=== PATIENT | male | born 1975 | race Hispanic/Latino ===

== ENCOUNTER 2018-05-06 17:25 | Observation (INO) | payer BC ==
[~2018-05-06] VITALS: Ht 185.4 cm; Wt 98.2 kg
[2018-05-06 17:45] VITALS: BP 125/80
[2018-05-06 19:00] VITALS: BP 130/83
[2018-05-06] MEDS ORDERED: ACETAMINOPHEN 325 MG TAB ONE (19:46)
[2018-05-06] MEDS ORDERED: POTASSIUM CHLORIDE 20MEQ/100ML 100 ML IV PRN (20:00)
[2018-05-06] MEDS ORDERED: ZOLPIDEM TARTRATE 5 MG TAB PO PRN (20:00)
[2018-05-06] MEDS ORDERED: DIAZEPAM 5 MG TABLET PO PRN ×2 (20:00→21:00)
[2018-05-06] MEDS ORDERED: POTASSIUM CHLORIDE 10% ELIXIR 20 MEQ/15 ML UDCUP PO PRN (20:00)
[2018-05-06] MEDS ORDERED: ACETAMINOPHEN 325 MG TAB PO PRN (20:00)
[2018-05-06] MEDS ORDERED: NITROGLYCERIN 0.4 MG SL TAB SL PRN (20:00)
[2018-05-06] MEDS ORDERED: LIDOCAINE HCL-MPF 1% 2ML VIAL IJ PRN (20:00)
[2018-05-06] MEDS ORDERED: POTASSIUM CHLORIDE 20 MEQ ERTAB PO PRN (20:00)
[2018-05-06] MEDS ORDERED: ONDANSETRON HCL 4 MG/2 ML VIAL IVP PRN (20:00)
[2018-05-06] MEDS ORDERED: SODIUM CHLORIDE 0.9% 10 ML VIAL IVP PRN (20:00)
[2018-05-06] MEDS: METOPROLOL TARTRATE 25 MG TAB PO SCH (20:14)
[2018-05-06] MEDS ORDERED: ATORVASTATIN CALCIUM 40 MG TABLET PO SCH (21:00)
[2018-05-07 03:26] LABS: HEMATOCRIT 43.2 % (42-54); MEAN CORPUSCULAR HGB CONC 34.4 g/dL (32.0-36.0); MEAN CORPUSCULAR VOLUME 87.4 fL (79-99); NUCLEATED RED BLOOD CELLS 0.1 % (0.0-0.19); PLATELET COUNT (AUTO) 186 K/uL (130-400); RED BLOOD CELL COUNT(AUTO) 4.94 MIL/uL (4.50-6.20); WHITE BLOOD COUNT (AUTO) 8.4 K/uL (4.8-10.8)
[2018-05-07 03:33] LABS: INR 0.92 (0.85-1.15); PROTHROMBIN TIME 9.7 SEC (9.6-11.6)
[2018-05-07 03:44] LABS: POTASSIUM 4.3 mmol/L (3.5-5.1)
[2018-05-07] MEDS ORDERED: LIDOCAINE HCL-MPF 2% 5ML VIAL ONE (07:30)
[2018-05-07] MEDS ORDERED: IOHEXOL-350 50ML VIAL IV ONE (07:31)
[2018-05-07] MEDS ORDERED: MIDAZOLAM HCL 1 MG/ML 2ML VIAL ONE ×2 (07:31→08:19)
[2018-05-07] MEDS ORDERED: BIVALIRUDIN 250 MG/VIAL IV ONE (07:31)
[2018-05-07] MEDS ORDERED: IOHEXOL 350 MG/ML 100ML INFUS..BTL IV ONE (07:31)
[2018-05-07] MEDS ORDERED: FENTANYL CITRATE PF 50 MCG/1 ML 2ML VIAL ONE (07:32)
[2018-05-07] MEDS ORDERED: NITROGLYCERIN 5 MG/ML 10 ML VIAL IV ONE (07:37)
[2018-05-07] MEDS ORDERED: SODIUM CHLORIDE 0.9% 1000ML 1,000 ML IV SCH (08:55)
[2018-05-07] MEDS ORDERED: LOSARTAN/HYDROCHLOROTHIAZIDE 50-12.5MG TABLET PO SCH (09:00)
[2018-05-07] MEDS ORDERED: ASPIRIN 81MG TAB.CHEW PO SCH (09:00)
[2018-05-07 09:30] VITALS: BP 152/91
[2018-05-07] MEDS: METOPROLOL TARTRATE 25 MG TAB PO SCH (09:31)
[2018-05-07 09:35] VITALS: BP 145/106
[2018-05-07 09:50] VITALS: BP 140/102
[2018-05-07 10:05] VITALS: BP 137/92
[2018-05-07 10:35] VITALS: BP 139/101
[2018-05-07 11:05] VITALS: BP 132/94
[2018-05-07] MEDS ORDERED: NEBI10TA PO (13:18)
[2018-05-07] MEDS ORDERED: LOSA1TAB54 PO (13:18)
[2018-05-07] MEDS ORDERED: ATOR40TA69 PO (13:18)
[2018-05-07] MEDS ORDERED: AEC81 PO (13:19)
== END 2018-05-07 13:30 | disposition home or self-care (01) ==
LOC: EDH 17:25 → EDHIP 17:26 → 2AH 17:50
PROVIDERS: ADMIT Internal Medicine Cardiovascular Disease; ATTEND Internal Medicine Cardiovascular Disease
DX: I25.110 Atherosclerotic heart disease of native coronary artery with unstable angina pectoris (principal); I11.9 Hypertensive heart disease without heart failure
CPT/HCPCS: 36415; 80048; 84484 ×2; 85027; 85610; 93458; 99285; C1894 ×2; G0378 ×20; J1644; J2250 ×2; J3010; J3490 ×2; J7030; Q9965; Q9967 ×2; 99156; 99157; J0583

== ENCOUNTER 2025-02-21 06:15 | Day surgery (SDC) | payer BC ==
[2025-02-20 12:46] LABS: IMMATURE GRANULOCYTE ABSOLUTE 0.04 K/uL (0-1); NUCLEATED RED BLOOD CELLS 0.0 % (0.0-0.19); PLATELET COUNT (AUTO) 252 K/uL (130-400); RED BLOOD CELL COUNT(AUTO) 5.08 MIL/uL (4.50-6.20); RED CELL DISTRIBUTION WIDTH 13.0 % (11.0-15.5); WHITE BLOOD COUNT (AUTO) 6.9 K/uL (4.8-10.8)
--- NOTE | 2025-02-20 12:52 | HMCIMG ---
EXAM: CR Chest, 1 View. CLINICAL HISTORY: PREOP COMPARISON: None provided. FINDINGS: LUNGS: There is no mass, infiltrate, or acute pulmonary abnormality. PLEURAL SPACES: No pleural effusion or pneumothorax. MEDIASTINUM: Cardiac size and mediastinal contours within normal limits. BONES: No acute osseous abnormality. IMPRESSION: No acute cardiopulmonary pathology is evident. /[place]
[2025-02-20 12:55] LABS: CREATININE 1.2 mg/dL (0.5-1.3); GLOMERULAR FILTR. RATE CALC 75.0 mL/min (>90); GLUCOSE,RANDOM 97.0 mg/dL (70-105); SODIUM SERUM 140.0 mmol/L (136-145); UREA NITROGEN, BLOOD 22.0 mg/dL (7-18)
[2025-02-20 12:57] LABS: INR 0.95 (0.85-1.15)
--- NOTE | 2025-02-20 14:57 | EKG ---
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
[2025-02-20 15:57] VITALS: BP 100/58; PULSE 63; RESP 13; TEMP 97.7
[~2025-02-21] VITALS: Ht 182.9 cm; Wt 93.5 kg
[2025-02-21] VITALS (10 sets, daily range): BP systolic 107–142; BP diastolic 69–95; PULSE 59–66; RESP 11–18; TEMP 97–97.2
[~2025-02-21 06:15] MED LIST: ATOR40TA69 PO; LOSA1TAB54 PO; NEBI10TA10 PO
[2025-02-21] MEDS: 0.9%NACL 1000ML 1,000 ML IV SCH (07:06)
[2025-02-21] MEDS ORDERED: IOHEXOL 350 MG/ML 100ML INFUS..BTL IV ONE (07:11)
[2025-02-21] MEDS ORDERED: LIDOCAINE HCL 400MG/20ML VIAL ONE (07:11)
[2025-02-21] MEDS ORDERED: HEParin-NS 1,000 UNIT/500 ML 1,000 ML IV ONE (07:12)
[2025-02-21] MEDS ORDERED: NITROGLYCERIN 50MG VIAL ONE (07:12)
[2025-02-21] MEDS ORDERED: MIDAZOLAM HCL 1 MG/ML 2ML VIAL ONE ×3 (07:59→08:41)
[2025-02-21] MEDS ORDERED: BIVALIRUDIN 250 MG/VIAL IV ONE (09:03)
[2025-02-21] MEDS ORDERED: HEParin-NS 1,000 UNIT/500 ML 500 ML IV ONE (09:18)
[2025-02-21] MEDS ORDERED: ASPIRIN 81MG CHEW TAB ONE (09:57)
--- NOTE | 2025-02-21 10:25 | PRN ---
Procedure Note INDICATION FOR PROCEDURE: [] Abnormal coronary CT angiogram revealing severe multivessel disease History of coronary artery disease Family history of coronary atherosclerosis Hypertension PROCEDURE: [] Conscious sedation Right radial arterial sheath placement 6 [place] Selective coronary angiography Left heart catheterization Omni wire pressure measurement of LAD and left circumflex lesions Intravascular ultrasound of left circumflex vessel Lithotripsy angioplasty of proximal, mid and distal left circumflex 3 mm x 34 mm Mono kendall stent to mid and distal left circumflex deployed to 3.20 mm 3 mm x 22 mm Mono kendall stent to proximal and mid left circumflex deployed to 3.20 mm DATE OF PROCEDURE: February 21, 2025 METER REPAIRER: Flako Parmar MD, F.A.C.C. PROCEDURE NOTE: Patient was brought to catheterization suite and prepped and draped in sterile fashion. An IV was started if not already in place and both groins were exposed for arterial access as was the right radial artery. Ultrasound guidance was utilized to gain access to the right radial artery and once free flow blood was seen modified Seldinger technique was utilized to place a 6 [place] 10 cm sheath to the right radial artery. Next a baby J wire was then used to advance into the aortic root with the assistance with a tic catheter. TIG catheter was then advanced and was used to selectively engage the [place] coronary vessels and multiple hand contrast injections were performed in different views to define the anatomy. The TIG catheter was also used to cross the aortic valve pressure measurements were obtained and then pullback method was performed. Findings are as described below but secondary to coronary CT angiogram as well as questionable lesions in the proximal LAD and prox mid and distal left circumflex it was felt Omni wire assessment should be done. Therefore the TIG catheter was removed over wire wire was kept in place and then short sheath was removed and replaced with an R to P 70 5 cm sheath which was advanced to the ascending aorta. Next a 6 [place] JL 3.5 guide catheter was then placed in the left coronary system and then an Omni wire was utilized and once calibrated was advanced past the proximal mid LAD lesion with a ratios being measured at 0.98 and 0.97. Omni wire was then advanced and placed into the mid left circumflex with a ratio obtain their at 0.84 and then went advanced to the distal left circumflex the ratio was noted to be 0.79. This was felt to be significant and further investigation was warranted with intravascular ultrasound. Intravascular ultrasound was then performed of the proximal mid and distal left circumflex revealing relatively soft plaque but with some areas that had greater than 180 of calcium. It was felt lithotripsy angioplasty should be performed to prepare vessel. Patient was given Angiomax bolus and started on an Angiomax drip and then a 3 mm x 12 mm lithotripsy balloon was then used to provide 12 treatments total in overlapping fashion to the distal mid and proximal left circumflex vessel. Size of balloon and stent choice was consistent with the measurements made with intravascular ultrasound. Next a 3 mm x 34 mm Mono kendall stent was then successfully placed into the distal left circumflex and then deployed to 3.20 mm. This was followed by placement of a 3 mm x 22 mm Mono kendall stent placed in an overlapping fashion from proximal to mid circumflex with the previously placed stent. This was deployed to 3.20 mm. Follow up contrast injection revealed no evidence of dissection or perforation with GABE 3 flow noted. At end of case long sheath was removed using a TR band. No complications occurred. IMPRESSION: Critical stenosis of proximal mid and distal left circumflex confirmed with the Omni wire and intravascular ultrasound at greater than 70-80% Mild stenosis noted of proximal mid LAD with the Omni wire ratio at 0.98 and 0.97 Successful lithotripsy angioplasty and medicated stent placement to mid distal left circumflex with the use of a 3 mm x 34 mm Mono kendall stent deployed to 3.20 mm and a 3 mm x 22 mm Mono kendall stent to the proximal and mid left circumflex in overlapping fashion with the previously placed stent deployed to 3.20 mm PLAN: Monitor in the patient tele proximally 1700 and discharge home if stable Dual antiplatelet therapy uninterrupted Continue risk-factor modification trying to achieve an LDL goal of less than 55 mg/dL FLAKO PARMAR MD Feb 21, 2025 10:25
[2025-02-21] MEDS ORDERED: DEXTROSE 50%-WATER 50 ML DISP.SYRIN IV PRN (10:30)
[2025-02-21] MEDS ORDERED: 0.9%NACL 1000ML 1,000 ML IV SCH (10:30)
[2025-02-21] MEDS ORDERED: GLUCAGON 1MG KIT 1 MG ML IM PRN (10:30)
[2025-02-21] MEDS ORDERED: NITROGLYCERIN 0.4 MG SL TAB SL PRN (10:30)
[2025-02-21] MEDS ORDERED: CLOP-31 PO (11:26)
[2025-02-21] MEDS ORDERED: ASPI-1443 PO (11:26)
--- NOTE | 2025-02-21 12:25 | NUR ---
Patient remains quiet and cooperative. Gave Tylenol for right Radial site "soreness". Stating its "Feeling better". Educated at length on VASC band protocol and DC plans. Right arm on pillow for support. appearing anxious since his admission. She stated "I am going to go into the laboratory secretary to see the screens". I explained multiple times that she could wait in the room or front lobby. 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 She appears a bit calmer and has stopped overriding questions and my assessment of the Patient. VASC band now being taking down as per protocol. Patient voices no complaints. He is tolerating small amounts of Lunch and fluids. Voided per urinal. HOB at 35', SR's up x 2 Call light in reach.
--- NOTE | 2025-02-21 13:41 | NUR ---
VASC band removed per protocol. No evidence of bruising, bleeding or hematoma. Neurovascularly intact. Cleansed area with Chloroprep covered with large Tegaderm and applied light Coban pressure dressing. Educated both at length regarding precautions and expectations of protecting right radial wrist. Gave stent card to Patient and instructed him to take a cell phone picture and to place in his wallet which he did. Provided education of Plavix and importance of taking t and aspirin. Prescriptions given to . All questions answered. Call light in reach.
--- NOTE | 2025-02-21 14:12 | NUR ---
Full and complete discharge instructions given to Patient and both verbally and in writing. Explained Angiogram procedure precautions and follow up. Right Radial site clean dry and intact. No evidence of bleeding, bruising or hematoma. Radial pulses intact to RUE. All questions answered. PIV removed with catheter tip intact. at bedside appearing supportive. W/C to POV with to home.
== END 2025-02-21 14:05 | disposition home or self-care (01) ==
LOC: DAH 06:15
PROVIDERS: ATTEND Internal Medicine Cardiovascular Disease
DX: R94.39 Abnormal result of other cardiovascular function study (principal); I25.119 Atherosclerotic heart disease of native coronary artery with unspecified angina pectoris; I25.84 Coronary atherosclerosis due to calcified coronary lesion; I10 Essential (primary) hypertension; E78.2 Mixed hyperlipidemia; R53.83 Other fatigue; Z79.01 Long term (current) use of anticoagulants; Z79.899 Other long term (current) drug therapy
CPT/HCPCS: 80048; 85025; 85610; 85730; 36415; 71045; 93005; 92978; 92972; 93571; 93572; 99156; 99157 ×5; 93458; C9600; C1887 ×2; C1769 ×3; C1894 ×3; C1874 ×2; C1761; C1753; J3010 ×2; J3490 ×3; J2270; J1644 ×3; J2250 ×3; J0583; Q9967; A4215; A4335; A4222; A6260; A4221; A4663; A4216; A6258; A4606; Q9965 ×2; A4223 ×3